=== PATIENT | female | born 1955 | race Caucasian/White ===

== ENCOUNTER 2019-07-15 08:05 | Day surgery (SDC) | payer OTHER ==
[2019-07-14 14:09] VITALS: BMI 41.5
[2019-07-15 10:27] VITALS: TEMP 98.2
[2019-07-15 10:39] VITALS: PULSE 88
[2019-07-15 11:14] VITALS: BP 111/84
--- NOTE | 2019-07-18 16:32 | PATH ---
Surgical Pathology Report Patient Name: FLORENTIN LANDRY [facility]. Rec. #: [id number] /Age/Gender: 1955 (Age: 64) / F Account: [id number] Location: [facility]-ENDOSCOPY Taken: 07/15/2019 Received: 07/15/2019 Reported: 07/18/2019 Physicians: Risa Salomon M.D. Specimen(s) Received A: RECTAL POLYP BX B: POLYP SIGMOID, HOT SNARE AND BX C: ILEOCECAL VALVE POLYP , HOT SNARE AND BX D: TRANSVERSE COLON POLYP BX E: BX COLON DISTAL TRANSVERSE POLYP AND COLD SNARE F: DESCENDING COLON POYLP COLD SNARE Clinical History History of colon polyps Final Diagnosis A. RECTAL POLYP BIOPSY X 2: TWO FRAGMENTS OF COLONIC MUCOSA WITH SURFACE HYPERPLASTIC CHANGE. B. SIGMOID POLYPS, POLYPECTOMY: TUBULAR ADENOMA, ONE FRAGMENT. SEPARATE FRAGMENTS OF COLONIC MUCOSA WITH SURFACE HYPERPLASTIC CHANGE. C. ILEOCECAL VALVE POLYP, BIOPSY: FRAGMENTS OF SMALL BOWEL INTESTINAL/ COLONIC TRANSITIONAL MUCOSA WITH SEVERE THERMAL EFFECT. NEGATIVE FOR MALIGNANCY. D. PROXIMAL TRANSVERSE COLON POLYP, BIOPSY: FRAGMENTS OF COLONIC MUCOSA WITH SURFACE HYPERPLASTIC CHANGE. E. DISTAL TRANSVERSE COLON POLYP, BIOPSY: COLONIC MUCOSA WITH SURFACE HYPERPLASTIC CHANGE. F. DESCENDING COLON POLYP, POLYPECTOMY: HYPERPLASTIC POLYP Electronically Signed Laureano Sweeney M.D. Gross Description A. Received in formalin, labeled "rectal polyps x 2" are 3tan, irregular portions of soft tissue measuring 0.1 to 0.3 cm. in greatest dimension. The specimens are submitted in toto in one cassette. B. Received in formalin, labeled "sigmoid polyps" are 3 jacobson, irregular portion of soft tissue measuring 0.1 to 0.4 cm. in greatest dimension. The specimens are submitted in toto in one cassette. C. Received in formalin, labeled "ileocecal valve polyp" are multiple jacobson, irregular portions of soft tissue measuring 0.3 x 0.3 x 0.1 cm. in aggregate. The specimens are submitted in toto in one cassette. D. Received in formalin, labeled "proximal colon polyp" are 3 jacobson, irregular portions of soft tissue measuring 0.3 cm. in greatest dimension. The specimens are submitted in toto in one cassette. E. Received in formalin, labeled "distal transverse colon polyp" is a jacobson, irregular portion of soft tissue measuring 0.3 cm. in greatest dimension. The specimens are submitted in toto in one cassette. F. Received in formalin, labeled "descending colon polyp" is a jacobson, irregular portion of soft tissue measuring 0.3 cm. in greatest dimension. The specimens are submitted in toto in one cassette. __ YENIFER/07/18/2019 chantelle07/18/2019
== END 2019-07-15 11:14 | disposition home or self-care (01) ==
LOC: JASU-ENDO 08:05
PROVIDERS: ATTEND Internal Medicine Gastroenterology
PROC: 0DBL8ZX Excision of Transverse Colon, Via Natural or Artificial Opening Endoscopic, Diagnostic (ICD-10-PCS; 2019-07-15)
PROC: 0DBM8ZX Excision of Descending Colon, Via Natural or Artificial Opening Endoscopic, Diagnostic (ICD-10-PCS; 2019-07-15)
PROC: 0DBN8ZX Excision of Sigmoid Colon, Via Natural or Artificial Opening Endoscopic, Diagnostic (ICD-10-PCS; 2019-07-15)
PROC: 0DBP8ZX Excision of Rectum, Via Natural or Artificial Opening Endoscopic, Diagnostic (ICD-10-PCS; 2019-07-15)
PROC: 0DBC8ZX Excision of Ileocecal Valve, Via Natural or Artificial Opening Endoscopic, Diagnostic (ICD-10-PCS; principal; 2019-07-15 08:45)
DX: Z12.11 Encounter for screening for malignant neoplasm of colon (principal); K62.1 Rectal polyp; D12.4 Benign neoplasm of descending colon; D12.5 Benign neoplasm of sigmoid colon; D12.3 Benign neoplasm of transverse colon; K57.30 Diverticulosis of large intestine without perforation or abscess without bleeding
CPT/HCPCS: 88305-TC

== ENCOUNTER 2023-05-05 07:15 | Day surgery (SDC) | payer OTHER ==
[2023-05-01 13:52] VITALS: BMI 40.8
[2023-05-05 08:00] LABS: INR 0.97 (0.83-1.09); PROTHROMBIN TIME (PATIENT) 11.3 SEC (9.7-13.0)
[2023-05-05] MEDS ORDERED: VANCOMYCIN 1,000 MG VIAL (RESTRICTED TO ID ONLY) ONE (08:07)
[2023-05-05] MEDS ORDERED: ceFAZolin SODIUM 1 GM VIAL ONE ×3 (08:07→11:10)
[2023-05-05] MEDS: CELECOXIB 200 MG CAPSULE PO ONE ×2 (08:10→15:29)
[2023-05-05] MEDS ORDERED: ONDANSETRON 4 MG/2 ML VIAL IVPUSH PRN (08:20)
[2023-05-05] MEDS ORDERED: oxyCODONE HCL 5 MG TABLET PO PRN ×2 (08:20)
[2023-05-05] MEDS ORDERED: ACETAMINOPHEN 325 MG TABLET (FP) PO PRN (08:20)
[2023-05-05] MEDS ORDERED: BUPIVACAINE HCL/PF 0.5% (5 MG/ML) 30 ML VIAL IJ ONE (08:22)
[2023-05-05] MEDS ORDERED: ACETAMINOPHEN INJECTION 100 ML IVPB ONE (08:22)
[2023-05-05] MEDS ORDERED: MIDAZOLAM HCL 2 MG/2 ML SINGLE DOSE VIAL ONE (08:22)
[2023-05-05] MEDS ORDERED: TRANEXAMIC ACID 1000 MG/10 ML VIAL ONE (09:11)
[2023-05-05] MEDS ORDERED: PROPOFOL 40 ML ONE (09:11)
[2023-05-05] MEDS ORDERED: CEFAZOLIN 2 GM in DEXTROSE 5%-WATER - 50 ML IVPB ONE (09:30)
[2023-05-05] MEDS ORDERED: PHENYLEPHRINE HCL 10 MG/1 ML SINGLE DOSE VIAL ONE (10:29)
[2023-05-05] MEDS ORDERED: TRANEXAMIC ACID 1000 MG/10 ML VIAL IVPUSH ONE (10:30)
[2023-05-05] MEDS ORDERED: DEXAMETHASONE SOD PHOSPHATE 4 MG/1 ML VIAL ONE (11:10)
[2023-05-05] MEDS ORDERED: ONDANSETRON 4 MG/2 ML VIAL ONE (11:10)
[2023-05-05] MEDS ORDERED: KETOROLAC TROMETHAMINE 30 MG/1 ML VIAL ONE (11:10)
[2023-05-05] MEDS ORDERED: MAG HYDROX/AL HYDROX/SIMETH 30 ML UNIT-DOSE CUP PO PRN (11:58)
[2023-05-05] MEDS ORDERED: PATIENT'S OWN MEDICATION (NON-FORMULARY) (Evolocumab [Repatha Sureclick] 140 MG/ML Pen.Inj SQ SCH (12:00)
[2023-05-05] MEDS: LACTATED RINGERS SOLUTION 1,000 ML IV SCH (15:29)
[2023-05-05] MEDS: CEFAZOLIN 3 GM in DEXTROSE 5%-WATER - 100 ML IVPB SCH (17:22)
[2023-05-05] MEDS: SENNOSIDES/DOCUSATE COMBO (SENNA PLUS) TABLET (UD) PO SCH (21:12)
[2023-05-05] MEDS: FAMOTIDINE 20 MG TABLET PO SCH (21:12)
[2023-05-05] MEDS ORDERED: CLOPIDOGREL BISULFATE 75 MG TABLET (FP) PO SCH (22:00)
[2023-05-05] MEDS ORDERED: ISOSORBIDE MONONITRATE 30 MG TAB.SR.24H (FP) PO SCH (22:00)
[2023-05-06 01:05] VITALS: RESP 18
[2023-05-06] MEDS: CEFAZOLIN 3 GM in DEXTROSE 5%-WATER - 100 ML IVPB SCH (02:00)
[2023-05-06 07:50] LABS: HEMATOCRIT 44.5 % (32.4-45.2); HEMOGLOBIN 14.6 G/dL (10.7-15.3); MCH 32.9 pg (25.7-33.7); MCHC 32.8 g/dl (32.0-36.0); MEAN CELL VOLUME 100.2 fl (80-96); MEAN PLT VOLUME 8.1 fl (7.5-11.1); PLATELET COUNT 165.3 10^3/uL (134-434); RBC 4.44 10^6/uL (3.60-5.2); RDW 13.5 % (11.6-15.6); WHITE BLOOD COUNT 11.2 10^3/uL (4.0-10.8)
[2023-05-06] MEDS: FAMOTIDINE 20 MG TABLET PO SCH (09:12)
[2023-05-06] MEDS: SENNOSIDES/DOCUSATE COMBO (SENNA PLUS) TABLET (UD) PO SCH (09:12)
[2023-05-06] MEDS: LACTATED RINGERS SOLUTION 1,000 ML IV SCH (09:20)
[2023-05-06] MEDS ORDERED: LOSARTAN 50MG/HCTZ 12.5MG 1 TAB PO SCH (10:00)
[2023-05-06] MEDS ORDERED: MULTIVITAMINS (DAILY MVI) TABLET (FP) PO SCH (10:00)
[2023-05-06] MEDS ORDERED: PATIENT'S OWN MEDICATION (NON-FORMULARY) (Olmesartan/Hydrochlorothiazide [Benicar Hct 20-1 PO SCH (10:00)
[2023-05-06] MEDS ORDERED: TIOTROPIUM BROMIDE 2.5 MCG (SPIRIVA) RESPIMAT INHALER IH SCH (10:00)
[2023-05-06 14:21] VITALS: BP 112/59; PULSE 87; TEMP 98
== END 2023-05-06 15:15 | disposition home health service (06) ==
LOC: FASUSAT 07:15 → FM/S 13:24 → FASUSAT 05-06 15:15
PROVIDERS: ATTEND Orthopaedic Surgery
PROC: 8E0Y0CZ Robotic Assisted Procedure of Lower Extremity, Open Approach (ICD-10-PCS; 2023-05-05)
PROC: 0SR90JA Replacement of Right Hip Joint with Synthetic Substitute, Uncemented, Open Approach (ICD-10-PCS; principal; 2023-05-05 10:56)
DX: M16.11 Unilateral primary osteoarthritis, right hip (principal)
CPT/HCPCS: 20985; 27130; C1776; S2900; 36415; 73502-TC-RT-FY; 85027; 85610; 88305-TC; 88311-TC; 94760; 97010-GP; 97116-GP; 97162-GP